=== PATIENT | female | born 1940 | race Caucasian/White ===

== ENCOUNTER 2022-08-27 09:29 | Inpatient (IN) ==
--- NOTE | 2022-08-13 12:16 | PAT Medication Instructions ---
Medication Instructions Date of Service August 13, 2022 Home Medications ascorbic acid (vitamin C) 500 mg tablet (Vitamin C) 500 mg PO QAM cholecalciferol (vitamin D3) 25 mcg (1,000 unit) chewable tablet (Vitamin D3) 25 mcg PO QAM garlic 500 mg PO QAM geriatric multivitamin-min 1 tab PO QAM pantoprazole 40 mg tablet,delayed release 40 mg PO QAM pyridoxine (vitamin B6) 50 mg tablet (Vitamin B-6) 50 mg PO QAM tramadol 50 mg tablet 50 mg PO Q6H PRN Pain turmeric 900 mg-turmeric root extract 100 mg-black pepper 5 mg capsule 1 cap PO QAM zinc 50 mg tablet 50 mg PO QAM STOP taking 2 weeks before surgery (or as soon as possible if surgery is within 2 weeks) turmeric 900 mg-turmeric root extract 100 mg-black pepper 5 mg capsule 1 cap PO QAM garlic 500 mg PO QAM DO NOT take the morning of surgery ascorbic acid (vitamin C) 500 mg tablet (Vitamin C) 500 mg PO QAM cholecalciferol (vitamin D3) 25 mcg (1,000 unit) chewable tablet (Vitamin D3) 25 mcg PO QAM geriatric multivitamin-min 1 tab PO QAM pyridoxine (vitamin B6) 50 mg tablet (Vitamin B-6) 50 mg PO QAM zinc 50 mg tablet 50 mg PO QAM Take morning of surgery With a small sip of water, OTHERWISE NOTHING TO EAT OR DRINK AFTER MIDNIGHT: pantoprazole 40 mg tablet,delayed release 40 mg PO QAM tramadol 50 mg tablet 50 mg PO Q6H PRN Pain (if needed) Take evening before surgery tramadol 50 mg tablet 50 mg PO Q6H PRN Pain (if needed) Other Notes If you have any questions please call us at [phone] or [phone] or [phone] or [phone]
--- NOTE | 2022-08-16 14:14 | Anesthesiology Consultation ---
Date of Service August 16, 2022 Assessment & Plan (1) Encounter for pre-operative examination: - COVID screening: Per assessment on 08/16: No known COVID-19 positive contacts or current COVID-19 related symptoms. Travel screen negative. At surgeon discretion if preop Covid testing being done. - Outpatient joint assessment: Pt currently scheduled for inpatient pathway. If surgeon requests review for outpatient joint pathway, patient is acceptable candidate for outpatient joint program for total shoulder arthroplasty from anesthesia standpoint pending surgeon's office assessment of pt motivation/ensuring strong home support/completion of same day joint program preop requirements. - Cardiology office visit (07/31/22): " Based on the revised cardiac risk index for preoperative risk (Stuart criteria), this patient is class I with a perioperative risk of major cardiac event under general anesthesia of 0.4%. I think the patient is at low risk for the proposed procedure. The patient's cardiac care has been optimized in anticipation for surgery." - Patient acceptable risk for surgery pending surgeon-ordered PCP preop e valuation (Dr. Souleymane Kelly; Geoffrey scheduled 08/21). Chart Review Chart Review: Patient seen in Pre Admission Testing Teaching & Discussion Pre-Anesthesia Teaching/Discussion Notes: Instructed NPO after midnight before surgery,except medications with 15 cc of water. Medication instructions pr ovided according to the PAT guidelines. History Surgery Operation Date: 08/27/22 13:45 Proposed Procedures p Right Total Shoulder Arthroplasty - Alfredito Toney MD Height/Weight Height: 5 ft 2 in Weight: 78.2 kg Allergies Allergy/AdvReac Type Severity Reaction Status Date / Time methylprednisolone Allergy Unknown unknown Verified 08/10/22 12:22 isosorbide AdvReac Unknown headache Verified 08/10/22 12:22 Medications Home Medications Medication Instructions Recorded Confirmed Last Taken ascorbic acid (vitamin C) 500 mg 500 mg PO QAM 08/10/22 08/10/22 Unknown tablet (Vitamin C) cholecalciferol (vitamin D3) 25 25 mcg PO QAM 08/10/22 08/10/22 Unknown mcg (1,000 unit) chewable tablet (Vitamin D3) garlic 500 mg PO QAM 08/10/22 08/10/22 Unknown geriatric multivitamin-min 1 tab PO QAM 08/10/22 08/10/22 Unknown pantoprazole 40 mg tablet,delayed 40 mg PO QAM 08/10/22 08/10/22 Unknown release pyridoxine (vitamin B6) 50 mg 50 mg PO QAM 08/10/22 08/10/22 Unknown tablet (Vitamin B-6) tramadol 50 mg tablet 50 mg PO Q6H PRN Pain 08/10/22 08/10/22 Unknown turmeric 900 mg-turmeric root 1 cap PO QAM 08/10/22 08/10/22 Unknown extract 100 mg-black pepper 5 mg capsule zinc 50 mg tablet 50 mg PO QAM 08/10/22 08/10/22 Unknown Past Medical History Medical History Chronic sinusitis Dyslipidemia GERD (gastroesophageal reflux disease) Hx MRSA infection "Several yrs ago"/no further details per pt PSVT (paroxysmal supraventricular tachycardia) Exercise / Class Metabolic Activity III < 4 Walking/Shop/Light housework (cane PRN) Past Family History Family History Sister Diabetes Past Surgical History Surgical History History of cataract surgery R/L History of cholecystectomy History of colonoscopy History of hysterectomy History of tooth extraction History of total hip arthroplasty Right Right LCAUDIA revision (05/06/18): SAB at L3/4 (x1 attempt) at [facility]. No issues noted per post-op anesthesia progress note. History of total knee replacement R/L Social History Smoking Status: Never smoker Do You Dip or Chew Tobacco: No Hx Alcohol Use: No Hx Substance Use: No substance use type: does not use Review of Systems Patient denies chest pain, shortness of breath, fever, chills, cough, wheezing, palpitations. Physical Exam Vital Signs VITALS BP 144/81 P 79 TEMP 98.2 SP02 98%RA RESP 16 PHYSICAL Full cervical extension range of motion. Full TMJ range of motion. TMD 3 finger breaths Mallampati Score 3 Dentition: several missing sides/molars Lungs: clear throughout to auscultation Cardiac: regular rate and rhythm, no murmurs noted Spine: normal Carotid arteries: negative bruit Extremities: no edema Lab Results Anesthesia Preop Results Results Anesthesia Widget: WBC 6.03 K/ul (4.8-10.8) 08/16/22 Hgb 13.3 g/dl (12.0-16.0) 08/16/22 Hct 39.8 % (34.1-44.9) 08/16/22 Plt 226 K/uL (130-400) 08/16/22 Na 142 mmol/L (136-145) 08/16/22 K 4.1 mmol/L (3.5-5.1) 08/16/22 Cl 108 mmol/L (98-107) H 08/16/22 CO2 30 mmol/L (21-32) 08/16/22 BUN 18 mg/dl (6-23) 08/16/22 Creat 0.63 mg/dl (0.6-1.2) 08/16/22 Glucose Level 103 mg/dl (70-99(Fasting)) H 08/16/22 PT 10.8 Seconds (9.0-12.0) 08/16/22 PTT 28.6 Seconds (21.0-31.0) 08/16/22 INR 1.0 (0.9-1.1) 08/16/22 HA1c 5.8 % (4.5-5.6) H 08/16/22 Urine Color Yellow 08/16/22 Urine Appearance Clear (Clear) 08/16/22 Urine pH 5.0 (4.5-7.5) 08/16/22 Urine Specific [place] 1.019 (1.000-1.030) 08/16/22 Urine Protein Negative (Negative) 08/16/22 Urine Glucose (UA) Negative (Negative) 08/16/22 Urine Ketones Negative (Negative) 08/16/22 Urine Blood Negative (Negative) 08/16/22 Urine Nitrite Negative (Negative) 08/16/22 Urine Bilirubin Negative (Negative) 08/16/22 Urine Urobilinogen Negative (Negative) 08/16/22 Urine Leukocyte Esterase Negative (Negative) 08/16/22 Blood Type O Negative 08/16/22 Antibody Screen NEGATIVE 08/16/22 Testing Electrocardiogram Date: 07/31/22 SR at 74bpm. Normal ECG. Chest X-Ray Date: 08/16/22 FINDINGS: Lung volumes are normal. No consolidation to suggest pneumonia. Linear left basilar opacity reflects atelectasis. There is no pneumothorax or pleural effusion. Cardiac size is normal. Mediastinal contours are normal. There is no evidence for pulmonary edema. Incidental note is made of cholecystectomy clips. Right subcoracoid calcifications are unchanged. IMPRESSION: No acute cardiopulmonary findings. COVID-19 Risk Screen Screening Information COVID-19 Screen Date: 08/16/22 Exposure 21 Days Family/Household +COVID Last 21 Days: No Exposure 10 Days Any COVID Exposure Last 10 Days: No Symptoms Last 10 Days Experienced COVID Sx Last 10 Days: No + COVID 0-90 Days COVID + in Last 0-90 Days: No
--- NOTE | 2022-08-25 09:07 | History & Physical Report ---
Date of Service August 25, 2022 Assessment & Plan (1) Primary osteoarthritis, right shoulder: Plan: Treatment options discussed with the patient. She has failed conservative measures. She would like to proceed with surgical intervention. Given the appearance of her MRI feel patient would be better served with a reverse total shoulder arthroplasty versus a anatomic total shoulder. Risks, benefits and alternatives to surgery including but not limited to infection, DVT, pain, stiffness, need for revision surgery, damage to blood vessels, damage to nerves, PE, , were discussed with the patient and they wish to proceed. Plan on right reverse total shoulder arthroplasty scheduled for August 27 at [facility] with Dr. Toney. All questions answered. Patient will follow-up postop. History of Present Illness Chief Complaint: Right shoulder pain Primary Care Provider: Souleymane Robles Elder 82-year-old female with past medical history significant for high cholesterol, GERD, PSVT who presents with longstanding right shoulder pain. She has pain interfering with her daily activities. She has failed conservative measures including anti-inflammatories and injections. She would like to proceed with surgical intervention. Patient denies headaches, sweats, fevers, chills, double vision, blurred vision, cough, sore throat, dysphagia, chest pain, sob, wheezing, n/v/d/c, numbness, tingling, fatigue, urinary symptoms, mood disorders. ROS positive for right shoulder pain and stiffness. Allergies Allergy/AdvReac Type Severity Reaction Status Date / Time methylprednisolone Allergy Unknown unknown Verified 08/10/22 12:22 isosorbide AdvReac Unknown headache Verified 08/10/22 12:22 Home Medications Medication Instructions Recorded Confirmed Type ascorbic acid (vitamin C) 500 mg 500 mg PO QAM 08/10/22 08/10/22 History tablet (Vitamin C) cholecalciferol (vitamin D3) 25 25 mcg PO QAM 08/10/22 08/10/22 History mcg (1,000 unit) chewable tablet (Vitamin D3) garlic 500 mg PO QAM 08/10/22 08/10/22 History geriatric multivitamin-min 1 tab PO QAM 08/10/22 08/10/22 History pantoprazole 40 mg tablet,delayed 40 mg PO QAM 08/10/22 08/10/22 History release pyridoxine (vitamin B6) 50 mg 50 mg PO QAM 08/10/22 08/10/22 History tablet (Vitamin B-6) tramadol 50 mg tablet 50 mg PO Q6H PRN Pain 08/10/22 08/10/22 History turmeric 900 mg-turmeric root 1 cap PO QAM 08/10/22 08/10/22 History extract 100 mg-black pepper 5 mg capsule zinc 50 mg tablet 50 mg PO QAM 08/10/22 08/10/22 History Past Med/Surg History Medical History Chronic sinusitis Dyslipidemia GERD (gastroesophageal reflux disease) Hx MRSA infection "Several yrs ago"/no further details per pt PSVT (paroxysmal supraventricular tachycardia) Surgical History History of cataract surgery R/L History of cholecystectomy History of colonoscopy History of hysterectomy History of tooth extraction History of total hip arthroplasty Right Right CLAUDIA revision (05/06/18): SAB at L3/4 (x1 attempt) at [facility]. No issues noted per post-op anesthesia progress note. History of total knee replacement R/L Family History Sister Diabetes Social History Smoking Status: Never smoker Second Hand Exposure: No; Hx Alcohol Use: No Hx Substance Use: No Preferred Language: Beninese Communication Ability: Effective Microwave Technician Required: No Beliefs That Will Affect Care: None Current Living Situation: Family Feels Safe at Home: Yes Assistive Devices: Cane, Glasses and Walker Review of Systems All systems reviewed & are unremarkable except as noted in HPI & below Physical Exam Constitutional: well developed and well nourished; no acute distress Eyes: PERRL, conjunctivae normal, anicteric sclerae ENMT: external ear and nose normal, oropharynx normal Neck: trachea midline, no thyromegaly Respiratory: normal respiratory effort, lungs clear to auscultation Cardiovascular: RRR, no murmur, no edema Musculoskeletal: Right shoulder: There is crepitation with range of motion. Tenderness anterior aspect of her shoulder and anterolateral acromion. She has painful range of motion with forward flexion of 90 degrees actively, abduction of 90 degrees actively. She has pain with strength testing. Skin: no rashes, warm and dry Neurologic: patellar DTR's 2+ bilat, sensation intact Psychiatric: A+Ox3, euthymic affect Results & Data ([facility]) Diagnostic Findings Right shoulder radiographs demonstrate end-stage osteoarthritis glenohumeral joint. Patient has [id number] glenohumeral joint. She has multiple osteochondral loose bodies anterior aspect of her shoulder. MRI demonstrates that she is mildly anteriorly subluxed. There is a large fluid collection anterior aspect of her shoulder. Appears her subscapularis is chronically torn. Supraspinatus appears intact with some rotator cuff tendinopathy.
[~2022-08-27 09:29] MED LIST: ACETAMINOPHEN 500 MG TAB PO SCH; BUPIVACAINE 0.5 % 5 MG/1 ML PF 10ML VIAL ONE; CeleBREX 200 MG CAP PO SCH; FAMOTIDINE 20 MG TAB PO SCH; GABAPENTIN 300 MG CAP PO SCH; LR 15ML/HR IV SCH; METOCLOPRAMIDE HCL 10 MG TABLET PO SCH; TRANEXAMIC ACID 1,000 MG **IV Intra-op IV SCH; TRANEXAMIC ACID 1,000 MG **IV Pre-op IV SCH; ceFAZolin 1000MG 1,000 MG/7.5 ML SYR IV SCH; dexAMETHasone 4 MG TAB PO SCH
[2022-08-27] MEDS ORDERED: ROCURONIUM BROMIDE 10 MG/ML 5 ML VIAL IV ONE (09:30)
[2022-08-27] MEDS ORDERED: ONDANSETRON INJ 2 MG/ML 2 ML VIAL ONE (09:30)
[2022-08-27] MEDS ORDERED: LIDOCAINE 2% 2 ML VIAL/AMP(20MG/ML) INFIL ONE (09:30)
[2022-08-27] MEDS ORDERED: PROPOFOL IV EMULSION 10 MG/ML 20 ML VIAL IV ONE (09:30)
[2022-08-27] MEDS ORDERED: MIDAZOLAM HCL 1 MG/ML 2ML VIAL ONE (09:30)
[2022-08-27] MEDS ORDERED: fentaNYL citrate 100 MCG/2 ML VIAL ONE (09:31)
--- NOTE | 2022-08-27 09:53 | History & Physical Bridge Note ---
Date of Service August 27, 2022 History & Physical Bridge Note I have examined the patient, reviewed the History & Physical and in the interval since the performance of the History & Physical I have noted the following changes of clinical significance: no changes noted
[2022-08-27] MEDS ORDERED: PROMETHAZINE HCL 12.5 MG in SODIUM CHLORIDE 0.9% 50 ML IV PRN (10:54)
[2022-08-27] MEDS ORDERED: HYDROmorphone INJ 2 MG/ML SYR/VIAL IV PRN (10:54)
[2022-08-27] MEDS ORDERED: ATROPINE SULFATE 0.1 MG/ML 10ML SYR IV PRN (10:54)
[2022-08-27] MEDS ORDERED: ePHEDrine sulfate 50 MG/ML AMP IV PRN (10:54)
[2022-08-27] MEDS ORDERED: ONDANSETRON INJ 2 MG/ML 2 ML VIAL IV PRN ×2 (10:54→15:49)
[2022-08-27] MEDS ORDERED: fentaNYL citrate 100 MCG/2 ML VIAL IV PRN (10:54)
[2022-08-27] MEDS ORDERED: ceFAZolin 330 MG/ML 1 GM VIAL ONE (11:51)
[2022-08-27] MEDS ORDERED: SODIUM CHLORIDE 0.9% INJ 10 ML VIAL ONE ×2 (11:51→13:51)
[2022-08-27] MEDS ORDERED: PHENYLEPHRINE HCL 10 MG/ML VIAL ONE ×2 (13:51)
[2022-08-27] MEDS ORDERED: ePHEDrine sulfate 50 MG/ML AMP ONE (13:51)
[2022-08-27] MEDS ORDERED: SUGAMMADEX SODIUM 200 MG/2 ML VIAL IV ONE (14:04)
--- NOTE | 2022-08-27 14:43 | Operative Report ---
Post Operative Report Pre & Post Diagnosis Operation Date: 08/27/22 11:35 Pre-Op Diagnosis: Osteoarthritis, Right Shoulder, subcoracoid loose bodies, biceps tendinopathy with dislocation and associated bursal cyst anterior shoulder, subscapularis partial tear with rotator cuff tendinopathy subscapularis Post-Op Diagnosis: Same, partial tear supraspinatus tendon bursal side, subcoracoid loose bodies 2 cm, 1.5 cm and 2.5 cm. I identified the patient and participated in the time-out.: Yes Procedure Operation Date: 08/27/22 11:35 Actual Procedures p Right Reverse Total Shoulder Arthroplasty, excision subcoracoid loose bodies 2 cm, 1.5 cm and 2.5 cm, biceps tenodesis including excision of biceps tenosynovial cyst.- Alfredito Toney MD Surgeon Alfredito Toney MD Auto Damage Appraiser Emmanuel VANESSA Estimated Blood Loss 250 Findings Consistent with Post-Op Diagnosis Specimens Loose bodies and humeral head Drains 2 Hemovac Anesthesia Type General Regional Complications none Disposition Accompanied Patient To Recovery: No Disposition: Recovery Room Indications 82-year-old female with severe end-stage osteoarthritis of her right shoulder failed conservative management. X-rays demonstrate [id number] glenohumeral joint with subcoracoid large loose bodies. Her MRI demonstrates partial tear subscapularis tendon with dislocation of a widened proximal biceps tendon with biceps tendinopathy and anterior subluxation of the humerus and marked biceps tenosynovitis with a large cyst anterior medial to the biceps that extends from the biceps sheath. Description of Procedure The patient was taken to the operating room and anesthetized under regional block and general anesthetic. The patient was positioned on the operating table in a 30 beach chair position with a towel roll under the medial border of the right scapula. The arm was draped free to be able to manipulate the shoulder as needed. The right upper extremity was prepped and draped in usual sterile fashion. Exam demonstrated [id number] crepitation. Range of motion 130 degrees forward flexion 70 degrees abduction and and 30 degrees external rotation. She had an obese upper arm.. An anterior deltopectoral approach was performed. A longitudinal incision was made in the deltopectoral interval. The skin was incised sharply. Subcutaneous flaps were elevated off the fascia. The cephalic vein was dissected out and retracted lateral with the deltoid. The clavipectoral fascia was divided at the lateral margin of the conjoined tendon and extended up to the CA ligament. The following findings were noted; humerus was more anterior translated than typical. It was pushing up against the CA ligament and conjoined tendon. There was a large fluid collection overlying the biceps. The upper centimeter the pectoralis was released for better inferior exposure. The biceps tenosynovium extended into large cyst that was deep to the conjoined tendon anterior medially. This was carefully dissected out withdrawn back laterally and was able to pull back the entire cyst overlying the biceps tendon after which the cyst and the range of the biceps tendon sheath which was significantly thickened and chronically inflamed was resected. The biceps tendon was tenodesed to the pectoralis tendon with #2 FiberWire. The proximal biceps was resected. The proximal biceps was widened and dislocated under some partial tearing of the upper subscapularis tendon tissue. The outer subscapularis tendon tissue was still attached to bone and this was a deep partial tear. The subscapular muscle fibers were split longitudinally at the level of the circumflex vessels. The circumflex vessels were identified and tied off with silk ties and divided laterally. A Kitner elevator was used to free up the inferior fibers of the subscapularis off of the capsule. The axillary nerve was identified with a tug test and protected with a blunt Evan retractor between the nerve and the capsule. The subscapularis tendon was then taken down off of the lesser tuberosity subperiosteally, a Vicryl traction suture was placed and a subperiosteal dissection was performed along the neck of the humerus as the arm was gradually externally rotated exposing the humeral head. The humeral head findings demonstrated flattening of the humeral head with bone loss complete eburnation no articular cartilage a Hill-Sachs lesion posteriorly which was fairly deep possibly due to chronic anterior instability.. retractors were readjusted and the inferior osteophytes were all resected using an artist chisel. A Corona elevator was used to assist in releasing the capsule of the neck of the humerus. The capsule was divided with Montilla scissors down to the glenoid released off the anterior glenoid and the rotator interval was released to meet the capsular release and a 360 release of the subscapularis was accomplished. A Fukuda retractor was placed into the joint retracting the humeral head posterior. First attention was taken to removing the large loose bodies. The conjoined tendon was retracted anteriorly and there was a synovial type cystic tissue overlying the large loose bodies which was released with a long handled Bovie tip and using a right angle and long forceps I was able to remove 3 large loose bodies measuring 2 cm, 2.5 cm and 1.5 cm. The labrum and the remainder of the biceps widened tendon were resected as well as some chronic inflamed synovial tissue from the glenohumeral joint. Glenoid findings demonstrated there was a large anterior calcified labrum or bone spur that was resected. There was completely eburnated bone with no articular cartilage remaining with type a central wear with the superior and inferior diameter of the glenoid being longer than the medial lateral. There were some thin bone spurs of the posterior glenoid area.. an anterior-inferior and posterior inferior capsular release were performed with electrocautery and a Corona elevator on bone with the axillary nerve protected inferiorly by the retractor. Attention was then taken to the humeral preparation. The cutting guide was placed into the humeral head. It was positioned at 20 of retroversion. Oscillating saw was used to resect the humeral head giving the cut above the level of the posterior rotator cuff insertion site. The humerus was then prepared for the stem. [facility] First the supraspinatus was released leaving the infraspinatus and teres minor intact for appropriate exposure. The sizing broaches were used followed by trial broaches up to a size 3B long which had the appropriate fit and fill. The appropriate sized cut protector was placed. The humerus was then retracted posterior to the glenoid. The glenoid was sized for a 36 glenoid sphere and a 25 mm baseplate. The guide for the baseplate was positioned in a 10 inferior tilt and the central drill hole was made. The reamer for the 25 baseplate was used. The central drill was widened for the peg. The Tornier aequalis hydroxyapatite-coated 25 mm baseplate was impacted into position. The base plate was transfixed with superior and inferior locking screws and anterior and posterior compression screws with stable fixation. The fan reamer was used for the 36 millimeter glenoid sphere. After irrigation the 36 mm standard glenoid sphere was impacted onto the baseplate and the security screw was tightened. Attention was taken back to the humerus. First we noted some bleeding from the cephalic vein where there was a tear in the thin vein and this vein had to be tied off with silk ties to control bleeding. The cut protector was removed and the +0 low offset humeral tray trial was assembled to the trial stem rotated appropriately to get bony coverage and then screwed in position. A trial reduction was performed. A +9 reversed trial insert demonstrated good stability and no shuck. The trials were removed. 3 drill holes are made into the harder bone in the bicipital groove area and 3 #5 FiberWire sutures were placed transosseously. The canal was irrigated with pulsatile lavage saline solution. The final component was assembled. The final component was +9 mm versus insert assembled to plus or low offset humeral tray onto a ascend flex 3B long stem. This was then impacted into the humerus with a tight press-fit. It was reduced to the glenoid sphere. Stability was verified. Subscapularis was repaired with the #5 FiberWire sutures using Saurabh-Emre suture technique. Lateral row soft tissue repair was performed with #2 FiberWire [id number] sutures. The supraspinatus anterior portion was reapproximated to the subscapularis tendon lateral rotator interval tissue with similar #2 FiberWire [id number] sutures. The pectoralis was repaired with #2 FiberWire [id number] sutures reinforcing the biceps tendon tenodesis. The arm was taken through a range of motion which demonstrated 130 degrees forward flexion 90 degrees abduction and 45 degrees external rotation without any tension on repair. The implant was stable through the range of motion tested. The wound was copiously irrigated. 2 Hemovac drains were placed. The deltopectoral interval was closed with [id number] #1 Vicryl sutures. The subcutaneous tissues were closed with 2-0 Vicryl sutures. The skin was closed with vipin. Sterile dressings were applied and a shoulder immobilizer. Adan VANESSA, my physician medical receptionist medical assistant, acted as multimedia production assistant throughout the procedure .He performed functions including patient positioning, arm positioning, prepping and draping, soft tissue retraction, instrument management, suture management and performed the subcutaneous and skin closure and will participate in the postoperative care of the patient. I attest to the content of the Intraoperative Record and any orders documented therein. Any exceptions are noted below.
--- NOTE | 2022-08-27 15:20 | Anesthesiology Progress Note ---
Date of Service August 27, 2022 Anesthesia Post Procedure Vital Signs Vital Signs: Temp Pulse Resp BP Pulse Ox O2 Del Method O2 Flow Rate 08/27/22 15:10 69 13 105/75 97 Oxymask 2 08/27/22 15:00 69 20 139/67 99 Oxymask 5 08/27/22 14:50 75 20 144/76 H 99 Oxymask 5 08/27/22 14:40 36 C L 73 19 146/67 H 100 Oxymask 5 08/27/22 10:12 36.5 C 77 22 193/99 H 98 Room Air Pain Intensity Right Shoulder: Pain Intensity: 0 Transfer of Care Handoff Completed per policy Notes Mental Status: alert / awake / arousable Patient Amnestic to Procedure: Yes Nausea / Vomiting: adequately controlled Pain: adequately controlled Airway Patency, RR, SpO2: stable & adequate BP & HR: stable & adequate Hydration State: stable & adequate Anesthetic Complications: no major complications apparent
--- NOTE | 2022-08-27 15:28 | XRay Report ---
RIGHT SHOULDER 2 VIEWS CLINICAL HISTORY: Postoperative examination. FINDINGS: 2 portable views of the right shoulder are obtained. The skeletal structures are osteopenic . A right shoulder arthroplasty is in near anatomic alignment. No acute fracture is seen. Skin clips, a surgical drain, subcutaneous gas, and soft tissue swelling overlying the right shoulder are expect ed postoperative findings. The right lung parenchyma is clear as visualized noting basilar atelectasi s. IMPRESSION: Expected postoperative findings status post right shoulder arthroplasty. No fracture is s een. Electronically signed by: Bjorn Paez M.D. 08/27/2022 3:27 PM
[2022-08-27] MEDS ORDERED: bisacodyL 10 MG SUPP PR PRN (15:49)
[2022-08-27] MEDS ORDERED: NALOXONE HCL 0.4 MG/1 ML VIAL/CARP IV PRN (15:49)
[2022-08-27] MEDS ORDERED: METOCLOPRAMIDE HCL INJ 5 MG/ML 2 ML VIAL IV PRN (15:49)
[2022-08-27] MEDS ORDERED: MAGNESIUM HYDROXIDE SUSP 30 ML UDC PO PRN (15:49)
[2022-08-27] MEDS ORDERED: oxyCODONE HCL IR 5 MG TAB (IMMEDIATE RELEASE) PO PRN (15:49)
[2022-08-27] MEDS ORDERED: HYDROmorphone INJ 0.5 MG/0.5 ML SYR IV PRN (15:49)
[2022-08-27] MEDS: SODIUM CHLORIDE 0.9% 1000ML 1,000 ML IV SCH (16:03)
[2022-08-27] MEDS: DOCUSATE SODIUM 100 MG CAP PO SCH (20:49)
[2022-08-27] MEDS: ACETAMINOPHEN 500 MG TAB PO SCH (20:49)
[2022-08-27] MEDS: ceFAZolin 1000MG 1,000 MG/7.5 ML SYR IV SCH (20:50)
[2022-08-27] MEDS ORDERED: SENNA 8.6 MG TAB PO SCH (21:00)
[2022-08-28] MEDS: SODIUM CHLORIDE 0.9% 1000ML 1,000 ML IV SCH (02:56)
[2022-08-28] MEDS: ACETAMINOPHEN 500 MG TAB PO SCH (05:11)
[2022-08-28] MEDS: ceFAZolin 1000MG 1,000 MG/7.5 ML SYR IV SCH (05:11)
--- NOTE | 2022-08-28 07:41 | Orthopedic Progress Note ---
Date of Service August 28, 2022 Assessment & Plan (1) Primary osteoarthritis, right shoulder: Plan: Postop day #1 right reverse total shoulder arthroplasty -PT/OT: No shoulder range of motion. May do elbow/wrist/hand motion, shrugs, pendulums -DVT prophylaxis: SCDs -Pain management as written -A.m. labs are pending -Discharge planning plan on discharge home likely later today Admission and Anticipated Discharge Date Admission Date: August 27, 2022 Subjective Patient is postop day 1 right reverse total shoulder. She is doing well this morning. Pain is well controlled. No other complaints currently. Denies chest pain, shortness of breath, dizziness, nausea/vomiting/diarrhea. Review of Systems Review of Systems: All systems reviewed & are unremarkable except as noted in Subjective Physical Exam Physical Exam: Right shoulder: Dressing is clean, dry, intact. Sling in place. Hemovac on suction. Fingers are mobile. Does have some numbness into her fingers and stiffness likely residual from block. Constitutional: WD/WN, vitals as above Results & Data ([facility]) Vital Signs (Past 12 Hours) Vital Signs Temp Pulse Resp BP Pulse Ox O2 Del Method 08/28/22 06:05 36.4 C L 73 16 128/74 94 Room Air 08/28/22 02:57 36.4 C L 83 16 143/79 H 93 Room Air 08/27/22 21:47 36.4 C L 83 18 131/74 93 Room Air
[2022-08-28] MEDS: DOCUSATE SODIUM 100 MG CAP PO SCH (08:07)
[2022-08-28 08:34] LABS: Basophils # (auto) 0.01 K/uL (0-0.2); Basophils % (auto) 0.1 %; Hematocrit (blood only) 34.8 % (34.1-44.9); Hemoglobin 11.8 g/dl (12.0-16.0); Immature Granulocytes # (auto) 0.06 K/uL (0.00-0.02); Immature Granulocytes % (auto) 0.4 %; Lymphocytes # (auto) 0.63 K/uL (1.2-3.4); Lymphocytes % (auto) 4.6 %; Mean Corpuscular Hemoglobin 31.5 pg (25.0-34.0); Mean Corpuscular Hgb Conc 33.9 g/dL (32.0-36.0); Mean Corpuscular Volume 92.8 fL (80.0-100.0); Mean Platelet Volume 9.7 fL (9.4-12.3); Monocytes # (auto) 1.09 K/uL (0.24-0.82); Neutrophils # (auto) 11.85 K/uL (1.4-6.5); Neutrophils % (auto) 86.9 %; Platelet Count 210 K/uL (130-400); RDW Coefficient of Variation 13.6 % (11.5-14.5); RDW Standard Deviation 46.6 fL (36.4-46.3); Red Blood Count 3.75 M/uL (3.93-5.22); White Blood Count 13.64 K/ul (4.8-10.8)
[2022-08-28] MEDS ORDERED: PANTOprazole 40 MG TAB PO SCH (09:00)
[2022-08-28] MEDS ORDERED: CHOLECALCIFEROL 1,000 UNITS 25 MCG TAB PO SCH (09:00)
[2022-08-28] MEDS ORDERED: PYRIDOXINE HCL 50 MG TAB PO SCH (09:00)
[2022-08-28] MEDS ORDERED: ASCORBIC ACID 500 MG TAB PO SCH (09:00)
[2022-08-28] MEDS ORDERED: MULTIVITAMIN TAB PO SCH (09:00)
[2022-08-28 09:02] LABS: Calcium 8.9 mg/dl (8.5-10.1); Creatinine Clr Calc Pharmacy 70.4 ml/min; Est GFR (African American) 99.8 ml/min; Est GFR (Non-African American) 86.1 ml/min; Potassium 4.3 mmol/L (3.5-5.1)
--- NOTE | 2022-08-28 12:17 | Hospitalist Consultation ---
Date of Consultation August 28, 2022 Assessment & Plan (1) Primary osteoarthritis, right shoulder: The patient is postoperative day #1 after right shoulder arthroplasty. Orthopedic management (2) GERD (gastroesophageal reflux disease): Stable. Continue PPI therapy (3) Acute blood loss anemia: Mild. No intervention necessary at this time Plan Medically stable for discharge to home per orthopedic service History of Present Illness Reason for Consultation: Medical management Requesting Physician: Dr. Wagoner Attending Physician: Alfredito Toney MD History of Present Illness 82-year-old female who underwent right shoulder arthroplasty on August 27. She was seen today prior to discharge and is medically stable. Allergies Allergy/AdvReac Type Severity Reaction Status Date / Time methylprednisolone Allergy Unknown unknown Verified 08/27/22 10:43 isosorbide AdvReac Unknown headache Verified 08/27/22 10:43 Home Medications Medication Instructions Recorded Confirmed Type ascorbic acid (vitamin C) 500 mg 500 mg PO QAM 08/10/22 08/27/22 History tablet (Vitamin C) cholecalciferol (vitamin D3) 25 25 mcg PO QAM 08/10/22 08/27/22 History mcg (1,000 unit) chewable tablet (Vitamin D3) garlic 500 mg PO QAM 08/10/22 08/27/22 History pantoprazole 40 mg tablet,delayed 40 mg PO QAM 08/10/22 08/27/22 History release (Protonix) pyridoxine (vitamin B6) 50 mg 50 mg PO QAM 08/10/22 08/27/22 History tablet (Vitamin B-6) turmeric 900 mg-turmeric root 1 cap PO QAM 08/10/22 08/27/22 History extract 100 mg-black pepper 5 mg capsule zinc 50 mg tablet 50 mg PO QAM 08/10/22 08/27/22 History acetaminophen 500 mg tablet 1,000 mg PO Q8 #60 tabs 08/28/22 Rx (Tylenol Extra Strength) oxycodone 5 mg tablet 5 - 10 mg PO .Q4h-6h PRN pain #30 08/28/22 Rx tabs Patient History Medical History Chronic sinusitis Dyslipidemia GERD (gastroesophageal reflux disease) Hx MRSA infection "Several yrs ago"/no further details per pt PSVT (paroxysmal supraventricular tachycardia) Surgical History History of cataract surgery R/L History of cholecystectomy History of colonoscopy History of hysterectomy History of tooth extraction History of total hip arthroplasty Right Right CLAUDIA revision (05/06/18): SAB at L3/4 (x1 attempt) at [facility]. No issues noted per post-op anesthesia progress note. History of total knee replacement R/L Family History Sister Diabetes Social History Smoking Status: Never smoker Second Hand Exposure: No; Do You Dip or Chew Tobacco: No; Tobacco Cessation Education Requested by Patient: No Hx Alcohol Use: No Hx Substance Use: No Preferred Language: Syriac Communication Ability: Effective Credit Relationship Manager Required: No Beliefs That Will Affect Care: None marital status: / Current Living Situation: Family How many Children do You have: 1 Other Information That Helps Us Care for You: No Feels Safe at Home: Yes Safety Concerns: Feels Safe At This Time Assistive Devices: Cane and Stair Lift Assistive Devices Comment: chair lift Review of Systems Review of Systems: Constitutional-no fever or chills ENT-no blurred vision, no double vision, no epistaxis, no sore throat Respiratory-no cough, no wheezing, no shortness of breath Cardiac-no palpitations, no chest pain, no syncope GI-no nausea, vomiting, diarrhea, melena, hematochezia -no urinary retention, no urinary incontinence, no dysuria, no hematuria Musculoskeletal-mild postoperative right shoulder discomfort. Otherwise unremarkable Skin-no bruising, no rashes, no pruritus Neuro-no isolated weakness, no paresthesia, no weakness Psych-no depression, no anxiety Physical Exam Physical Exam: General-alert and oriented x3, no fevers, no chills HEENT-head atraumatic and normocephalic, pupils equal and reactive to light, extraocular muscles intact Neck-no lymphadenopathy or thyromegaly, trachea midline Chest-clear to auscultation percussion. No rales wheezing or rhonchi Cardiac-regular rate and rhythm, normal S1 and S2, no murmurs Abdomen-normal bowel sounds, nontender, no hepatosplenomegaly Extremities-right shoulder immobilized postoperatively Neuro-cranial nerves II through XII intact, motor and sensory function within normal limits, strength symmetrical , no focal deficits Psych-normal affect, normal mood Results & Data Results & Data ([facility]) Vital Signs (Past 12 Hours) Vital Signs Temp Pulse Resp BP Pulse Ox O2 Del Method 08/28/22 10:31 36.4 C L 73 16 128/74 94 08/28/22 06:05 36.4 C L 73 16 128/74 94 Room Air 08/28/22 02:57 36.4 C L 83 16 143/79 H 93 Room Air Laboratory Results 08/28/22 07:57 08/28/22 07:57 PG Care Time/CCT Total # of Minutes Spent Total Time Spent with Patient: Total time spent is greater than 50% in coordination of care (as documented) at patient's floor/unit and/or counseling patient: Coding Level of Care Code 84069 Inpt Consult Level 3 Diagnoses Primary osteoarthritis, right shoulder M19.011 GERD (gastroesophageal reflux disease) K21.9 Acute blood loss anemia D62
--- NOTE | 2022-08-29 07:17 | Discharge Summary ---
Date of Service August 29, 2022 Admission HPI Per Admitting Provider 82-year-old female with past medical history significant for high cholesterol, GERD, PSVT who presents with longstanding right shoulder pain. She has pain interfering with her daily activities. She has failed conservative measures including anti-inflammatories and injections. She would like to proceed with surgical intervention. Patient denies headaches, sweats, fevers, chills, double vision, blurred vision, cough, sore throat, dysphagia, chest pain, sob, wheezing, n/v/d/c, numbness, tingling, fatigue, urinary symptoms, mood disorders. ROS positive for right shoulder pain and stiffness. Admission Exam Per Admitting Provider Constitutional: well developed and well nourished; no acute distress Eyes: PERRL, conjunctivae normal, anicteric sclerae ENMT: external ear and nose normal, oropharynx normal Neck: trachea midline, no thyromegaly Respiratory: normal respiratory effort, lungs clear to auscultation Cardiovascular: RRR, no murmur, no edema Musculoskeletal: Right shoulder: There is crepitation with range of motion. Tenderness anterior aspect of her shoulder and anterolateral acromion. She has painful range of motion with forward flexion of 90 degrees actively, abduction of 90 degrees actively. She has pain with strength testing. Skin: no rashes, warm and dry A Neurologic: patellar DTR's 2+ bilat, sensation intact Psychiatric: A+Ox3, euthymic affect Principal Diagnosis Right shoulder osteoarthritis Discharge Exam Right shoulder: Dressing is clean, dry, intact. Sling in place. Hemovac on suction. Fingers are mobile. Does have some numbness into her fingers and stiffness likely residual from block. Constitutional WD/WN, vitals as above Discharge Data Allergies Allergy/AdvReac Type Severity Reaction Status Date / Time methylprednisolone Allergy Unknown unknown Verified 08/27/22 10:43 isosorbide AdvReac Unknown headache Verified 08/27/22 10:43 Consultations 08/23/22 12:07 Consult Hospitalist Routine Procedures Performed Operation Date: 08/27/22 11:35 Actual Procedures p Right Reverse Total Shoulder Arthroplasty(Right) - Alfredito Toney MD Ordered Studies 08/27/22 05:00 US - OR guided needle placemen Routine Hospital Course (1) Primary osteoarthritis, right shoulder: Postop day #1 right reverse total shoulder arthroplasty -PT/OT: No shoulder range of motion. May do elbow/wrist/hand motion, shrugs, pendulums -DVT prophylaxis: SCDs -Pain management as written -A.m. labs are pending -Discharge planning plan on discharge home likely later today Lab Results 08/28/22 08/28/22 Range/Units 07:57 07:57 WBC 13.64 H (4.8-10.8) K/ul RBC 3.75 L (3.93-5.22) M/uL Hgb 11.8 L (12.0-16.0) g/dl Hct 34.8 (34.1-44.9) % MCV 92.8 (80.0-100.0) fL MCH 31.5 (25.0-34.0) pg MCHC 33.9 (32.0-36.0) g/dL RDW Std Deviation 46.6 H (36.4-46.3) fL RDW Coeff of Vicky 13.6 (11.5-14.5) % Plt Count 210 (130-400) K/uL MPV 9.7 (9.4-12.3) fL Immature Gran % (Auto) 0.4 % Neut % (Auto) 86.9 % Lymph % (Auto) 4.6 % [place] % (Auto) 8.0 % Eos % (Auto) 0.0 % Baso % (Auto) 0.1 % Neut # (Auto) 11.85 H (1.4-6.5) K/uL Lymph # (Auto) 0.63 L (1.2-3.4) K/uL [place] # (Auto) 1.09 H (0.24-0.82) K/uL Eos # (Auto) 0.00 (0-0.50) K/uL Baso # (Auto) 0.01 (0-0.2) K/uL Immature Gran # (Auto) 0.06 H (0.00-0.02) K/uL Sodium 138 (136-145) mmol/L Potassium 4.3 (3.5-5.1) mmol/L Chloride 105 (98-107) mmol/L Carbon Dioxide 28 (21-32) mmol/L Anion Gap 5 (3-11) BUN 21 (6-23) mg/dl Creatinine 0.60 (0.6-1.2) mg/dl Est Cr Clr Drug Dosing 70.4 ml/min Est GFR ( Amer) 99.8 ml/min Est GFR (Non-Af Amer) 86.1 ml/min BUN/Creatinine Ratio 35.0 H (10-20) Glucose 118 H (70-99(Fasting)) mg/dl Calcium 8.9 (8.5-10.1) mg/dl Total Time Total Time Spent Total Time Spent (In Minutes): 20 Discharge Plan Discharge Items Patient Disposition: Home - Home Health Services Reason For Visit: Osteoarthritis, Right Shoulder Discharge Diagnosis: Right shoulder osteoarthritis Activity: Per Instructions section Non-emergency contact: Surgeon Call non-emergency contact if: you have any medication questions, your pain is not controlled, your pain is concerning for you, you have a fever, your temperature is above 101, your wound has increased redness and your wound has increased drainage Follow-up/Referrals: Souleymane Kelly M.D. [Primary Care Provider] - Diet: Regular Addtl Attending Provider Instructions: ACTIVITY RECOMMENDATIONS: SELF CARE INSTRUCTIONS AFTER TOTAL SHOULDER ARTHROPLASTY REVERSE A. You may do daily exercises as taught in physical therapy while in hospital. No lifting with the operative arm. B. You are to wear your sling/immobilizer at all times EXCEPT when performing your daily exercises and for hygiene purposes. C. You may perform dry, daily dressing changes. Please keep your incision covered. You may shower 48 hours after surgery. Do not apply soap or any ointment/lotions directly over incision. Do not soak incision in bath tub/swimming pool. D. You may use ice as needed to operative shoulder. SPECIAL CARE INSTRUCTIONS: VERY IMPORTANT TO READ AND REVIEW A. There are a few signs you need to watch for after you are home. Call [facility] at [phone] if you experience any of the followin. Increased severe shoulder pain. Some pain is expected especially when you exercise. 2. Increased swelling in you shoulder or arm; pain or swelling in either upper extremity. 3. Any fluid drainage from the incision. 4. Shortness of breath or chest pain. B. Please call [facility] at [phone] if you have any questions or concerns about your operation or recovery. C. Call your physician if: 1. Temperature is greater than 101 degrees (F). 2. Pain is not relieved by prescribed pain medications. 3. Increase drainage or redness from incision. 4. Unanswered questions or concerns. FOLLOW UP VISIT: Please call [facility] at [phone] to schedule a follow up appointment with Dr. Toney or his PA in 12-14 days from your surgery date. Stand-Alone Forms: My [employer], Smoking Cessation Medications and DC Order Prescriptions: New acetaminophen [Tylenol Extra Strength] 500 mg Tablet 1,000 mg PO Q8 Qty: 60 0RF oxycodone 5 mg Tablet 5 - 10 mg PO .Q4h-6h MDD 6 PRN (Reason: pain) Qty: 30 0RF Rx Instructions: Ongoing therapy, Dr. Toney supervising Continued ascorbic acid (vitamin C) [Vitamin C] 500 mg Tablet 500 mg PO QAM pantoprazole [Protonix] 40 mg Tablet,Delayed Release (Dr/Ec) 40 mg PO QAM garlic Capsule 500 mg PO QAM pyridoxine (vitamin B6) [Vitamin B-6] 50 mg Tablet 50 mg PO QAM zinc 50 mg Tablet 50 mg PO QAM cholecalciferol (vitamin D3) [Vitamin D3] 25 mcg (1,000 unit) Tablet,Chewable 25 mcg PO QAM turmeric-turmeric ext-pepper 900-100-5 mg Capsule 1 cap PO QAM Discontinued tramadol 50 mg Tablet 50 mg PO Q6H PRN (Reason: Pain) Discharge Orders: Discharge Order (Routine); Ordered 08/28/22 Ordered By: Emmanuel Hernandez Admission Data Admit Date/Time: 08/27/22 14:42 Attending Provider: Alfredito Toney Admit Provider: Alfredito Toney Primary Care Provider: Souleymane Kelly Other Providers: Conner Meyers ; Nicola Pepe ; [facility] Other Interventions: Discharge Summary Assessment (RN) Last Done: 08/28/22 10:31
== END 2022-08-28 11:36 | disposition home health service (06) | DRG 483 ==
LOC: ASU 09:29 → 3W 14:42

== ENCOUNTER 2023-02-21 12:26 | Observation (INO) ==
--- NOTE | 2023-02-06 13:57 | PAT Medication Instructions ---
Medication Instructions Date of Service February 06, 2023 Home Medications Medication Instructions Recorded acetaminophen 500 mg tablet 1,000 mg PO Q8 #60 tabs 08/28/22 (Tylenol Extra Strength) oxycodone 5 mg tablet 5 - 10 mg PO .Q4h-6h PRN pain #30 08/28/22 tabs ascorbic acid (vitamin C) 500 mg tablet (Vitamin C) 500 mg PO QAM cholecalciferol (vitamin D3) 25 mcg (1,000 unit) chewable tablet (Vitamin D3) 25 mcg PO QAM garlic 500 mg PO QAM pantoprazole 40 mg tablet,delayed release (Protonix) 40 mg PO QAM pyridoxine (vitamin B6) 50 mg tablet (Vitamin B-6) 50 mg PO QAM turmeric 900 mg-turmeric root extract 100 mg-black pepper 5 mg capsule 1 cap PO QAM zinc 50 mg tablet 50 mg PO QAM acetaminophen 500 mg tablet (Tylenol Extra Strength) 1,000 mg PO Q8 oxycodone 5 mg tablet 5 - 10 mg PO .Q4h-6h PRN pain amitriptyline 10 mg tablet 10 mg PO HS PRN Sleep tramadol 50 mg tablet 50 mg PO TID PRN Pain ASK your prescriber and surgeon amitriptyline 10 mg tablet 10 mg PO HS PRN Sleep STOP taking 2 weeks before surgery (or as soon as possible if surgery is within 2 weeks) garlic 500 mg PO QAM turmeric 900 mg-turmeric root extract 100 mg-black pepper 5 mg capsule 1 cap PO QAM DO NOT take the morning of surgery ascorbic acid (vitamin C) 500 mg tablet (Vitamin C) 500 mg PO QAM cholecalciferol (vitamin D3) 25 mcg (1,000 unit) chewable tablet (Vitamin D3) 25 mcg PO QAM pyridoxine (vitamin B6) 50 mg tablet (Vitamin B-6) 50 mg PO QAM zinc 50 mg tablet 50 mg PO QAM Take morning of surgery With a small sip of water, OTHERWISE NOTHING TO EAT OR DRINK AFTER MIDNIGHT: pantoprazole 40 mg tablet,delayed release (Protonix) 40 mg PO QAM acetaminophen 500 mg tablet (Tylenol Extra Strength) 1,000 mg PO Q8 oxycodone 5 mg tablet 5 - 10 mg PO .Q4h-6h PRN pain (if needed) tramadol 50 mg tablet 50 mg PO TID PRN Pain (if needed) Take evening before surgery acetaminophen 500 mg tablet (Tylenol Extra Strength) 1,000 mg PO Q8 oxycodone 5 mg tablet 5 - 10 mg PO .Q4h-6h PRN pain (if needed) tramadol 50 mg tablet 50 mg PO TID PRN Pain (if needed) Other Notes If you have any questions please call us at [phone] or [phone] or [phone] or [phone]
--- NOTE | 2023-02-08 12:15 | Anesthesiology Consultation ---
Date of Service February 08, 2023 Assessment & Plan (1) Encounter for pre-operative examination: - COVID screening: Per assessment on 02/08: No known COVID-19 positive contacts or current COVID-19 related symptoms. Travel screen negative. At surgeon discretion if preop Covid testing being done. - Outpatient joint assessment: Pt currently scheduled for inpatient pathway. If surgeon requests review for outpatient joint pathway, patient is not recommended candidate for outpatient joint program from anesthesia standpoint (patient does not want to be considered for outpatient joint pathway/concerned with post-op care and bleeding due to heavy post-op bleeding in the past that was difficult to control). - S/P Right reverse TSA (08/27/22): Grade 2 view, MAC#3, ETT 7.0 + PNB at [facility]. No issues noted per post-op anesthesia progress note. - Cardiology visit (01/15/23): "Based on the revised cardiac risk index for preoperative risk (Stuart criteria), this patient is a class I with a perioperative risk of major cardiac event under general anesthesia of 0.4%. I think the patient is at a low risk for the proposed procedure. The patient's cardiac care has been optimized in anticipation of surgery." Chart Review Chart Review: Acceptable Risk for Surgery and Patient seen in Pre Admission Testing Teaching & Discussion Pre-Anesthesia Teaching/Discussion Notes: Instructed NPO after midnight before surgery,except medications with 15 cc of water. Medication instructions provided according to the PAT guidelines. History Surgery Operation Date: 02/21/23 09:20 Proposed Procedures p Left Total Shoulder Arthroplasty Reverse - Alfredito Toney MD Height/Weight Height: 5 ft 1 in Weight: 78.471 kg Allergies Allergy/AdvReac Type Severity Reaction Status Date / Time methylprednisolone Allergy Unknown unknown Verified 02/06/23 11:14 isosorbide AdvReac Unknown headache Verified 02/06/23 11:14 Medications Home Medications Medication Instructions Recorded Confirmed Last Taken ascorbic acid (vitamin C) 500 mg 500 mg PO QAM 08/10/22 02/06/23 08/25/22 tablet (Vitamin C) cholecalciferol (vitamin D3) 25 25 mcg PO QAM 08/10/22 02/06/23 08/20/22 mcg (1,000 unit) chewable tablet (Vitamin D3) garlic 500 mg PO QAM 09/02/06/23 08/20/22 pantoprazole 40 mg tablet,delayed 40 mg PO QAM 08/10/22 02/06/23 08/27/22 06:00 release (Protonix) pyridoxine (vitamin B6) 50 mg 50 mg PO QAM 08/10/22 02/06/23 08/26/22 tablet (Vitamin B-6) turmeric 900 mg-turmeric root 1 cap PO QAM 08/10/22 02/06/23 08/20/22 extract 100 mg-black pepper 5 mg capsule zinc 50 mg tablet 50 mg PO QAM 08/10/22 02/06/23 08/26/22 08:00 acetaminophen 500 mg tablet 1,000 mg PO Q8 #60 tabs 08/28/22 02/06/23 Unknown (Tylenol Extra Strength) oxycodone 5 mg tablet 5 - 10 mg PO .Q4h-6h PRN pain #30 08/28/22 02/06/23 Unknown tabs amitriptyline 10 mg tablet 10 mg PO HS PRN Sleep 02/06/23 02/06/23 Unknown tramadol 50 mg tablet 50 mg PO TID PRN Pain 02/06/23 02/06/23 Unknown Past Medical History Medical History Chronic sinusitis Dyslipidemia GERD (gastroesophageal reflux disease) Hx MRSA infection "Several yrs ago"/no further details per pt Poor historian PSVT (paroxysmal supraventricular tachycardia) Exercise / Class Metabolic Activity III < 4 Walking/Shop/Light housework Past Family History Family History Sister Diabetes Past Surgical History Surgical History History of cataract surgery R/L History of cholecystectomy History of colonoscopy History of hysterectomy History of tooth extraction History of total hip arthroplasty Right Right CLAUDIA revision (05/06/18): SAB at L3/4 (x1 attempt) at [facility]. No issues noted per post-op anesthesia progress note. History of total knee replacement R/L Hx of cardiac catheterization Patient thinks possible "many years ago", no stents > not noted per available cardiology records Hx of shoulder replacement Right reverse TSA (08/27/22): Grade 2 view, MAC#3, ETT 7.0 + PNB at [facility]. No issues noted per post-op anesthesia progress note. Past Anesthesia History No Hx of Anesthesia Complications and No Family Hx of Anesthesia Complications History of PONV No Hx of PONV and Hx of Motion Sickness (Remote) Social History Smoking Status: Never smoker Do You Dip or Chew Tobacco: No Hx Alcohol Use: No Hx Substance Use: No substance use type: does not use Review of Systems Patient denies chest pain, shortness of breath, fever, chills, cough, wheezing, palpitations. Physical Exam Vital Signs VITALS BP 169/90 P 77 TEMP 98.3 SP02 97%RA RESP 18 PHYSICAL Decreased cervical extension range of motion. Full TMJ range of motion. TMD 2.5 finger breaths Mallampati Score 1 Dentition: several missing (sides/molars), upper front right chipped Lungs: clear throughout to auscultation Cardiac: regular rate and rhythm, no murmurs noted Spine: normal Carotid arteries: negative bruit Extremities: non-pitting LE edema Lab Results Anesthesia Preop Results Results Anesthesia Widget: WBC 6.31 K/ul (4.8-10.8) 02/08/23 Hgb 13.1 g/dl (12.0-16.0) 02/08/23 Hct 39.6 % (37.0-47.0) 02/08/23 Plt 236 K/uL (130-400) 02/08/23 Na 141 mmol/L (136-145) 02/08/23 K 4.0 mmol/L (3.5-5.1) 02/08/23 Cl 106 mmol/L (98-107) 02/08/23 CO2 31 mmol/L (21-32) 02/08/23 BUN 18 mg/dl (6-23) 02/08/23 Creat 0.65 mg/dl (0.6-1.2) 02/08/23 Glucose Level 95 mg/dl (70-99(Fasting)) 02/08/23 PT 10.8 Seconds (9.0-12.0) 02/08/23 PTT 28.5 Seconds (21.0-31.0) 02/08/23 INR 1.0 (0.9-1.1) 02/08/23 Urine Color Yellow 02/08/23 Urine Appearance Turbid (Clear) A 02/08/23 Urine pH 8.0 (4.5-7.5) H 02/08/23 Urine Specific [place] 1.019 (1.000-1.030) 02/08/23 Urine Protein Negative (Negative) 02/08/23 Urine Glucose (UA) Negative (Negative) 02/08/23 Urine Ketones Negative (Negative) 02/08/23 Urine Blood Negative (Negative) 02/08/23 Urine Nitrite Negative (Negative) 02/08/23 Urine Bilirubin Negative (Negative) 02/08/23 Urine Urobilinogen Negative (Negative) 02/08/23 Urine Leukocyte Esterase Negative (Negative) 02/08/23 Urine WBC (Auto) 1-5 /hpf (0-5) 02/08/23 Urine RBC (Auto) 5-10 /hpf (0-4) H 02/08/23 Urine Hyaline Casts (Auto) 0 /lpf (0-5) 02/08/23 Urine Epithelial Cells (Auto) >30 /lpf (0-5) H 02/08/23 Urine Bacteria (Auto) Negative (Negative) 02/08/23 Blood Type O Negative 02/08/23 Antibody Screen NEGATIVE 02/08/23 Testing Electrocardiogram Date: 07/31/22 SR at 74bpm. Normal ECG. Chest X-Ray Date: 08/16/22 FINDINGS: Lung volumes are normal. No consolidation to suggest pneumonia. Linear left basilar opacity reflects atelectasis. There is no pneumothorax or pleural effusion. Cardiac size is normal. Mediastinal contours are normal. There is no evidence for pulmonary edema. Incidental note is made of cholecystectomy clips. Right subcoracoid calcifications are unchanged. IMPRESSION: No acute cardiopulmonary findings. Echocardiogram Date: 04/26/18 EF 65%. Grade I DD. Trace to mild MR. Mild TR. Mild PI. COVID-19 Risk Screen Screening Information COVID-19 Screen Date: 02/08/23 Exposure 21 Days Family/Household +COVID Last 21 Days: No Exposure 10 Days Any COVID Exposure Last 10 Days: No Symptoms Last 10 Days Experienced COVID Sx Last 10 Days: No + COVID 0-90 Days COVID + in Last 0-90 Days: No
--- NOTE | 2023-02-20 10:50 | History & Physical Report ---
Date of Service February 20, 2023 Assessment & Plan (1) Primary osteoarthritis, left shoulder: Plan: Treatment options discussed with the patient. She has end-stage osteoarthritis left shoulder. She has previous reverse total shoulder on the right side and has done well. She would like to proceed with surgical intervention on the left. Risks, benefits and alternatives to surgery including but not limited to infection, DVT, pain, stiffness, need for revision surgery, damage to blood vessels, damage to nerves, PE, , were discussed with the patient and they wish to proceed. Plan for left reverse total shoulder arthroplasty scheduled for Sheldon Rodriguesy with Dr. Toney on February 21. All questions answered. Patient will follow-up postop. History of Present Illness Chief Complaint: Left shoulder pain Primary Care Provider: NO PCP 82-year-old female with past medical history significant for high cholesterol, GERD, PSVT, previous reverse total shoulder on the right shoulder who presents with ongoing left shoulder pain. Patient has failed conservative measures. Her pain is interfering with her daily activities. She would like to proceed with surgical invention. Patient denies headaches, sweats, fevers, chills, double vision, blurred vision, cough, sore throat, dysphagia, chest pain, sob, wheezin g, n/v/d/c, numbness, tingling, fatigue, urinary symptoms, mood disorders. ROS positive for left shoulder pain and stiffness. Allergies Allergy/AdvReac Type Severity Reaction Status Date / Time methylprednisolone Allergy Unknown unknown Verified 02/06/23 11:14 isosorbide AdvReac Unknown headache Verified 02/06/23 11:14 Home Medications Medication Instructions Recorded Confirmed Type ascorbic acid (vitamin C) 500 mg 500 mg PO QAM 08/10/22 02/06/23 History tablet (Vitamin C) cholecalciferol (vitamin D3) 25 25 mcg PO QAM 08/10/22 02/06/23 History mcg (1,000 unit) chewable tablet (Vitamin D3) garlic 500 mg PO QAM 08/10/22 02/06/23 History pantoprazole 40 mg tablet,delayed 40 mg PO QAM 08/10/22 02/06/23 History release (Protonix) pyridoxine (vitamin B6) 50 mg 50 mg PO QAM 08/10/22 02/06/23 History tablet (Vitamin B-6) turmeric 900 mg-turmeric root 1 cap PO QAM 08/10/22 02/06/23 History extract 100 mg-black pepper 5 mg capsule zinc 50 mg tablet 50 mg PO QAM 08/10/22 02/06/23 History acetaminophen 500 mg tablet 1,000 mg PO Q8 #60 tabs 08/28/22 02/06/23 Rx (Tylenol Extra Strength) oxycodone 5 mg tablet 5 - 10 mg PO .Q4h-6h PRN pain #30 08/28/22 02/06/23 Rx tabs amitriptyline 10 mg tablet 10 mg PO HS PRN Sleep 02/06/23 02/06/23 History tramadol 50 mg tablet 50 mg PO TID PRN Pain 02/06/23 02/06/23 History Past Med/Surg History Medical History Chronic sinusitis Dyslipidemia GERD (gastroesophageal reflux disease) Hx MRSA infection "Several yrs ago"/no further details per pt Poor historian PSVT (paroxysmal supraventricular tachycardia) Surgical History History of cataract surgery R/L History of cholecystectomy History of colonoscopy History of hysterectomy History of tooth extraction History of total hip arthroplasty Right Right CLAUDIA revision (05/06/18): SAB at L3/4 (x1 attempt) at [facility]. No issues noted per post-op anesthesia progress note. History of total knee replacement R/L Hx of cardiac catheterization Patient thinks possible "many years ago", no stents > not noted per available cardiology records Hx of shoulder replacement Right reverse TSA (08/27/22): Grade 2 view, MAC#3, ETT 7.0 + PNB at [facility]. No issues noted per post-op anesthesia progress note. Family History Sister Diabetes Social History Smoking Status: Never smoker Second Hand Exposure: No; Do You Dip or Chew Tobacco: No; Tobacco Cessation Education Requested by Patient: No Hx Alcohol Use: No Hx Substance Use: No Preferred Language: Croatian Communication Ability: Effective Rubber Block Layer Required: No Beliefs That Will Affect Care: None marital status: / Current Living Situation: Family Current Living Situation Comment: LIVES W/ SON, IAM How many Children do You have: 1 Other Information That Helps Us Care for You: No Feels Safe at Home: Yes Safety Concerns: Feels Safe At This Time Assistive Devices: Cane, Glasses and Stair Lift Review of Systems All systems reviewed & are unremarkable except as noted in HPI & below Physical Exam Constitutional: well developed and well nourished; no acute distress Eyes: PERRL, conjunctivae normal, anicteric sclerae ENMT: external ear and nose normal, oropharynx normal Neck: trachea midline, no thyromegaly Respiratory: normal respiratory effort, lungs clear to auscultation Cardiovascular: RRR, no murmur, no edema Musculoskeletal: Left shoulder: Painful range of motion with crepitation. Positive impingement signs. Pain with strength testing. Abduction 4/5, external rotation 4+/5, internal rotation 5/5. Forward flexion to 90 degrees, abduction 85 degrees actively. Skin: no rashes, warm and dry Neurologic: patellar DTR's 2+ bilat, sensation intact Psychiatric: A+Ox3, euthymic affect Results & Data Diagnostic Findings Left shoulder radiographs demonstrate end-stage osteoarthritis left shoulder, [id number] glenohumeral joint. Large inferior humeral spur. Subchondral cysts at the greater tuberosity.
[~2023-02-21 12:26] MED LIST changes: -ceFAZolin 1000MG 1,000 MG/7.5 ML SYR IV SCH; +ceFAZolin 2000MG 2,000 MG/15 ML SYR IV SCH
[2023-02-21] MEDS ORDERED: fentaNYL citrate PF 100 MCG/2 ML VIAL ONE (13:04)
[2023-02-21] MEDS ORDERED: PROPOFOL IV EMULSION 10 MG/ML 20 ML VIAL IV ONE ×2 (13:05→15:29)
[2023-02-21] MEDS ORDERED: LIDOCAINE 2% MPF LOCAL 5 ML VIAL ONE (13:05)
[2023-02-21] MEDS ORDERED: ONDANSETRON INJ 2 MG/ML 2 ML VIAL ONE (13:05)
[2023-02-21] MEDS ORDERED: DEXAMETHASONE SOD INJ 4 MG/ML VIAL ONE (13:05)
[2023-02-21] MEDS ORDERED: ROCURONIUM BROMIDE 10 MG/ML 5 ML VIAL IV ONE (13:07)
[2023-02-21] MEDS ORDERED: SODIUM CHLORIDE 0.9% PF INJ 10 ML VIAL ONE (13:17)
[2023-02-21] MEDS ORDERED: ePHEDrine sulfate 50 MG/ML AMP ONE (13:17)
[2023-02-21] MEDS ORDERED: ATROPINE SULFATE 0.1 MG/ML 10ML SYR IV PRN (13:29)
[2023-02-21] MEDS ORDERED: ONDANSETRON INJ 2 MG/ML 2 ML VIAL IV PRN ×2 (13:29→18:31)
[2023-02-21] MEDS ORDERED: ePHEDrine sulfate 50 MG/ML AMP IV PRN (13:29)
--- NOTE | 2023-02-21 14:02 | History & Physical Bridge Note ---
Date of Service February 21, 2023 History & Physical Bridge Note I have examined the patient, reviewed the History & Physical and in the interval since the performance of the History & Physical I have noted the following changes of clinical significance: no changes noted
[2023-02-21] MEDS ORDERED: GLYCOPYRROLATE 0.2 MG/ML VIAL ONE (14:52)
[2023-02-21] MEDS ORDERED: ESMOLOL HCL INJ 10 MG/ML 10ML VIAL IV ONE (15:34)
[2023-02-21] MEDS ORDERED: LABETALOL HCL IV 5 MG/ML 20ML IV ONE (15:34)
[2023-02-21] MEDS ORDERED: SUGAMMADEX SODIUM 200 MG/2 ML VIAL IV ONE (16:18)
[2023-02-21] MEDS ORDERED: hydrALAZINE HCL 20 MG/ML VIAL ONE (16:45)
--- NOTE | 2023-02-21 17:03 | Operative Report ---
Post Operative Report Pre & Post Diagnosis Operation Date: 02/21/23 14:30 Pre-Op Diagnosis: Left shoulder end-stage glenohumeral osteoarthritis, rotator cuff tendinopathy, biceps tenosynovitis. Post-Op Diagnosis: Left shoulder end-stage glenohumeral osteoarthritis, rotator cuff tendinopathy, partial tear supraspinatus, biceps tendinopathy with tenosynovitis I identified the patient and participated in the time-out.: Yes Procedure Operation Date: 02/21/23 14:30 Actual Procedures p Left Total Shoulder Arthroplasty Reverse(Left), Tenosynovectomy and biceps tenodesis- Alfredito Toney MD Surgeon Alfredito Toney MD Elderly Companion Emmanuel VANESSA Estimated Blood Loss 100 Findings Consistent with Post-Op Diagnosis Specimens Humeral head Drains 2 Hemovac Anesthesia Type General Regional Complications none Disposition Disposition: Recovery Room Indications 82-year-old female with chronic left shoulder pain. Patient has severe end- stage osteoarthritis with typical large inferior humeral osteophytes consistent with osteoarthritis. She has type a wear completely [id number] with some mild bone loss pattern. Patient has successful right reverse shoulder replacement on a more severely arthritic shoulder. Description of Procedure The patient was taken to the operating room and anesthetized under regional block and general anesthetic. The patient was positioned on the operating table in a 30 beach chair position with a towel roll under the medial border of the left scapula. The arm was draped free to be able to manipulate the shoulder as needed. The left upper extremity was prepped and draped in usual sterile fashion. Exam demonstrated forward flexion 140 degrees abduction 90 degrees external rotation 45 degrees. [id number] crepitation.. An anterior deltopectoral approach was performed. A longitudinal incision was made in the deltopectoral interval. The skin was incised sharply. Subcutaneous flaps were elevated off the fascia. The cephalic vein was dissected out and retracted lateral with the deltoid. The clavipectoral fascia was divided at the lateral margin of the conjoined tendon and extended up to the CA ligament. The following findings were noted: The biceps tendon sheath had large cysts and synovitis from chronic bicipital inflammation and likely synovial tissue coming out of the joint into the biceps sheath. Intra-articular biceps was widened as well. The subscapularis tendon was intact. The supraspinatus had tendinopathy with bursal sided partial tearing no full-thickness tear.. The upper centimeter of the pectoralis was released for inferior exposure. A self-retaining retractor was placed. The the tendon cysts and inflamed tenosynovium material was resected from within the bicipital groove and around the biceps tendon. The biceps tendon was tenodesed to the pectoralis tendon with #2 FiberWire. The proximal biceps was resected. The subscapular muscle fibers were split longitudinally at the level of the circumflex vessels. The circumflex vessels were identified and tied off with silk ties and divided laterally. A Kitner elevator was used to free up the inferior fibers of the subscapularis off of the capsule. The axillary nerve was identified with a tug test and protected with a blunt Evan retractor between the nerve and the capsule. The subscapularis tendon was then taken down off of the lesser tuberosity subperiosteally, a Vicryl traction suture was placed and a subperiosteal dissection was performed along the neck of the humerus as the arm was gradually externally rotated exposing the humeral head. The humeral head findings demonstrated large osteophytes extending from anterior lateral along the inferior humeral articular surface back to the posterior humerus. There was eburnated bone on humeral head with no articular cartilage remaining.. retractors were readjusted and the inferior osteophytes were all resected using an artist chisel. All other smaller osteophytes around the head were resected with a rongeur. A Corona elevator was used to assist in releasing the capsule of the neck of the humerus. The capsule was divided with Montilla scissors down to the glenoid released off the anterior glenoid and the rotator interval was released to meet the capsular release and a 360 release of the subscapularis was accomplished. A Fukuda retractor was placed into the joint retracting the humeral head posterior. Glenoid findings demonstrated complete eburnation with no articular cartilage remaining with a type A central wear pattern. There was calcification of the posterior labrum. There were some osteophytes around the periphery of the glenoid.. The labrum and biceps tendon was resected. an anterior-inferior and posterior inferior capsular release were performed with electrocautery and a Corona elevator on bone with the axillary nerve protected inferiorly by the retractor. Attention was then taken to the humeral prepara tion. The cutting guide was placed into the humeral head. It was positioned at 20 of retroversion. Oscillating saw was used to resect the humeral head giving the cut above the level of the posterior rotator cuff insertion site. The humerus was then prepared for the stem. I used the ascend flex stem from [employer]. The sizing broaches were used followed by trial broaches up to a size 3B long which had the appropriate fit and fill. The appropriate sized cut protector was placed. The humerus was then retracted posterior to the glenoid. The glenoid was sized for a 25 baseplate. The guide for the baseplate was positioned in a 10 inferior tilt and the central drill hole was made. The reamer for the 25 baseplate was used. The central drill was widened for the peg. Additional toggling of the central drill was required due to the substantially sclerotic bone in order to facilitate baseplate placement. The Tornier aequalis hydroxyapatite-coated 25 mm standard post baseplate was imp acted into position. The base plate was transfixed with superior and inferior locking screws and anterior and posterior compression screws with stable fixation. The fan reamer was used for the 36 millimeter glenoid sphere. After irrigation the 36 mm centered glenoid sphere was impacted onto the baseplate and the security screw was tightened. Attention was taken back to the humerus. The cut protector was removed and the +0 high offset humeral tray trial was assembled to the trial stem rotated appropriately to get bony coverage and then screwed in position. A trial reduction was performed. A +6, 36 reversed trial insert demonstrated good stability and no shuck. The trials were removed. 3 drill holes are made into the harder bone in the bicipital groove area and 3 #5 FiberWire sutures were placed transosseously. The canal was irrigated with antibiotic solution with bacitracin. The final component was assembled. The final component was ascend flex 3B long stem assembled to +0 high offset humeral tray with +6, 36 reversed polyethylene insert. This was then impacted into the humerus with a tight press-fit. It was reduced to the glenoid sphere. Stability was verified. There was no shuck on testing. The subscapularis was repaired with the #5 FiberWire sutures using Saurabh-Emre suture technique. Lateral row soft tissue repair was performed with #2 FiberWire [id number] sutures. The pectoralis was repaired with #2 FiberWire sdejkv-to-uzzaj sutures reinforcing the biceps tendon tenodesis. The arm was taken through a range of motion which demonstrated 130 degrees forward flexion 90 degrees AB duction and 60 degrees external rotation without any tension on repair. The implant was stable through the range of motion tested. The wound was copiously irrigated. 2 Hemovac drains were placed. The deltopectoral interval was closed with [id number] #1 Vicryl sutures. The subcutaneous tissues were closed with 2- 0 Vicryl sutures. The skin was closed with vipin. Sterile dressings were applied and a shoulder immobilizer. Emmanuel VANESSA my physician casting assistant acted as bus assistant throughout the procedure .He performed functions including patient positioning, arm positioning, prepping and draping, soft tissue retraction, instrument management, suture management and performed the subcutaneous and skin closure and will participate in the postoperative care of the patient. I attest to the content of the Intraoperative Record and any orders documented therein. Any exceptions are noted below.
[2023-02-21] MEDS: fentaNYL citrate PF 100 MCG/2 ML VIAL IV PRN ×4 (17:33→18:00)
--- NOTE | 2023-02-21 17:39 | XRay Report ---
LEFT SHOULDER 2 VIEWS CLINICAL HISTORY: Postoperative examination. FINDINGS: 2 portable views of the left shoulder are obtained. The skeletal structures are osteopenic. A left shoulder arthroplasty is in near-anatomic alignment. No acute fracture is seen. Productive de generative change is noted in the acromioclavicular joint. Skin clips, a surgical drain, subcutaneous gas, and soft tissue swelling overlying the left shoulder are expected postoperative changes. Visual ized left lung parenchyma is clear noting dependent atelectasis. IMPRESSION: Expected postoperative findings status post left shoulder arthroplasty placement. No acut e fracture is seen. Electronically signed by: Bjorn Paez M.D. 02/21/2023 5:38 PM
--- NOTE | 2023-02-21 18:02 | Anesthesiology Progress Note ---
Date of Service February 21, 2023 Anesthesia Post Procedure Vital Signs Vital Signs: Temp Pulse Pulse Resp BP Pulse Ox O2 Del Method 02/21/23 17:55 72 14 131/60 95 Room Air 02/21/23 17:25 72 11 L 136/64 96 Room Air 02/21/23 17:45 70 12 129/57 L 94 Room Air 02/21/23 17:35 70 12 138/67 93 Room Air 02/21/23 17:15 75 10 L 145/75 H 98 Room Air 02/21/23 17:06 36 C L 77 14 141/67 H 100 Room Air 02/21/23 13:10 36.4 C L 85 20 187/113 H 99 Room Air Pain Intensity Left Shoulder: Pain Intensity: 5 Transfer of Care Handoff Completed per policy Notes Mental Status: alert / awake / arousable Patient Amnestic to Procedure: Yes Nausea / Vomiting: adequately controlled Pain: adequately controlled Airway Patency, RR, SpO2: stable & adequate BP & HR: stable & adequate Hydration State: stable & adequate Anesthetic Complications: no major complications apparent
[2023-02-21] MEDS ORDERED: NALOXONE HCL 0.4 MG/1 ML VIAL/CARP IV PRN (18:31)
[2023-02-21] MEDS ORDERED: traMADol HCL 50 MG TABLET PO PRN (18:31)
[2023-02-21] MEDS ORDERED: bisacodyL 10 MG SUPP PR PRN (18:31)
[2023-02-21] MEDS ORDERED: AMITRIPTYLINE HCL 10 MG TAB PO PRN (18:31)
[2023-02-21] MEDS ORDERED: HYDROmorphone INJ 0.5 MG/0.5 ML SYR IV PRN (18:31)
[2023-02-21] MEDS ORDERED: METOCLOPRAMIDE HCL INJ 5 MG/ML 2 ML VIAL IV PRN (18:31)
[2023-02-21] MEDS ORDERED: MAGNESIUM HYDROXIDE SUSP 30 ML UDC PO PRN (18:31)
[2023-02-21] MEDS ORDERED: SENNA 8.6 MG TAB PO SCH (21:00)
[2023-02-21] MEDS: SODIUM CHLORIDE 0.9% 1000ML 1,000 ML IV SCH (22:05)
[2023-02-21] MEDS: ACETAMINOPHEN 500 MG TAB PO SCH (22:05)
[2023-02-21] MEDS: DOCUSATE SODIUM 100 MG CAP PO SCH (22:06)
[2023-02-22] MEDS: SODIUM CHLORIDE 0.9% 1000ML 1,000 ML IV SCH (04:50)
[2023-02-22] MEDS: ACETAMINOPHEN 500 MG TAB PO SCH (06:18)
[2023-02-22] MEDS ORDERED: MULTIVITAMIN TAB PO SCH (09:00)
[2023-02-22] MEDS ORDERED: ASCORBIC ACID 500 MG TAB PO SCH (09:00)
[2023-02-22] MEDS ORDERED: PANTOprazole 40 MG TAB PO SCH (09:00)
[2023-02-22] MEDS ORDERED: PYRIDOXINE HCL 50 MG TAB PO SCH (09:00)
[2023-02-22] MEDS ORDERED: CHOLECALCIFEROL 1,000 UNITS 25 MCG TAB PO SCH (09:00)
[2023-02-22] MEDS: DOCUSATE SODIUM 100 MG CAP PO SCH (09:13)
--- NOTE | 2023-02-22 09:41 | Hospitalist Consultation ---
Date of Consultation February 22, 2023 Assessment & Plan (1) Primary osteoarthritis, left shoulder: POD 1 s/p Left Reverse TSA with Dr Toney PT/OT evaluated and patient doing well post operatively Patient to have outpatient physical therapy upon discharge Labs reviewed and stable. Hgb mild drop comparable to August. No evidence of any active bleeding, likely dilutional and blood loss from surgery ok for discharge and follow up with PCP (2) GERD (gastroesophageal reflux disease): - Stable and chronic - Continue PPI History of Present Illness Reason for Consultation: Medical Management Requesting Physician: Dr Toney Attending Physician: Alfredito Toney MD Allergies Allergy/AdvReac Type Severity Reaction Status Date / Time methylprednisolone Allergy Unknown unknown Verified 02/21/23 13:06 isosorbide AdvReac Unknown headache Verified 02/21/23 13:06 Home Medications Medication Instructions Recorded Confirmed Type ascorbic acid (vitamin C) 500 mg 500 mg PO QAM 08/10/22 02/21/23 History tablet (Vitamin C) cholecalciferol (vitamin D3) 25 25 mcg PO QAM 08/10/22 02/21/23 History mcg (1,000 unit) chewable tablet (Vitamin D3) garlic 500 mg PO QAM 08/10/22 02/21/23 History pantoprazole 40 mg tablet,delayed 40 mg PO QAM 08/10/22 02/21/23 History release (Protonix) pyridoxine (vitamin B6) 50 mg 50 mg PO QAM 08/10/22 02/21/23 History tablet (Vitamin B-6) turmeric 900 mg-turmeric root 1 cap PO QAM 08/10/22 02/21/23 History extract 100 mg-black pepper 5 mg capsule zinc 50 mg tablet 50 mg PO QAM 08/10/22 02/21/23 History acetaminophen 500 mg tablet 1,000 mg PO Q8 #60 tabs 08/28/22 02/21/23 Rx (Tylenol Extra Strength) amitriptyline 10 mg tablet 10 mg PO HS PRN Sleep 02/06/23 02/21/23 History tramadol 50 mg tablet 50 - 100 mg PO Q6H PRN pain #36 02/22/23 Rx tabs Patient History Medical History (Updated 02/22/23 @ 12:54 by Joellen Vergara PA-C) Chronic sinusitis Dyslipidemia GERD (gastroesophageal reflux disease) Hx MRSA infection "Several yrs ago"/no further details per pt Poor historian PSVT (paroxysmal supraventricular tachycardia) Surgical History History of cataract surgery R/L History of cholecystectomy History of colonoscopy History of hysterectomy History of tooth extraction History of total hip arthroplasty Right Right CLAUDIA revision (05/06/18): SAB at L3/4 (x1 attempt) at [facility]. No issues noted per post-op anesthesia progress note. History of total knee replacement R/L Hx of cardiac catheterization Patient thinks possible "many years ago", no stents > not noted per available cardiology records Hx of shoulder replacement Right reverse TSA (08/27/22): Grade 2 view, MAC#3, ETT 7.0 + PNB at [facility]. No issues noted per post-op anesthesia progress note. Family History Sister Diabetes Social History Smoking Status: Never smoker Second Hand Exposure: No; Do You Dip or Chew Tobacco: No; Tobacco Cessation Education Requested by Patient: No Hx Alcohol Use: No Hx Substance Use: No Preferred Language: Hungarian Communication Ability: Effective Night Time Nanny Required: No Beliefs That Will Affect Care: None marital status: / Current Living Situation: Family Current Living Situation Comment: LIVES W/ SON, IAM How many Children do You have: 1 Other Information That Helps Us Care for You: No Feels Safe at Home: No Is there a partner from a previous relationship who is making you feel unsafe now?: No Any Concerns about Your Family Situation: No Would You Like to Speak to Someone About Your Situation: No Safety Concerns: Feels Safe At This Time Assistive Devices: Cane and Walker Review of Systems Review of Systems: Patient denies any chest pain, SOB, Dyspnea, abdominal pain, cough fever or chills. All other ROS negative unless stated above. Physical Exam Constitutional: WD/WN, vitals as above Neck: trachea midline, no thyromegaly Respiratory: normal respiratory effort, lungs clear to auscultation Cardiovascular: Rate/Rhythm: regular rate and regular rhythm Extremities: normal capillary refill; no calf tenderness and no edema Musculoskeletal: left shoulder in sling with OLEGARIO drain Skin: no rashes, warm and dry Psychiatric: A+Ox3, euthymic affect Results & Data Results & Data Vital Signs (Past 12 Hours) Vital Signs Temp Pulse Resp BP Pulse Ox O2 Del Method 02/22/23 07:34 36.3 C L 72 18 119/66 94 Room Air 02/22/23 05:30 36.4 C L 72 18 102/57 L 93 Room Air 02/22/23 05:15 36.6 C 71 18 121/74 96 Room Air 02/22/23 01:33 36.4 C L 85 18 92/53 L 93 Room Air 02/21/23 22:00 Room Air Laboratory Results Abnormal lab results 02/22/23 02/22/23 Range/Units 10:16 10:16 RBC 3.77 L (4.20-5.40) M/uL Hgb 11.8 L (12.0-16.0) g/dl Hct 36.6 L (37.0-47.0) % RDW Std Deviation 52.2 H (36.4-46.3) fL RDW Coeff of Vicky 14.6 H (11.5-14.5) % Neut # (Auto) 7.03 H (1.40-6.50) K/uL Lymph # (Auto) 0.67 L (1.2-3.4) K/uL Murray # (Auto) 0.80 H (0.11-0.59) K/uL BUN/Creatinine Ratio 21.7 H (10-20) Glucose 107 H (70-99(Fasting)) mg/dl Calcium 8.5 L (8.6-10.3) mg/dl Diagnostic Findings Shoulder X-Ray 02/21/23 17:10 LEFT SHOULDER 2 VIEWS CLINICAL HISTORY: Postoperative examination. FINDINGS: 2 portable views of the left shoulder are obtained. The skeletal structures are osteopenic. A left shoulder arthroplasty is in near-anatomic alignment. No acute fracture is seen. Productive degenerative change is noted in the acromioclavicular joint. Skin clips, a surgical drain, subcutaneous gas, and soft tissue swelling overlying the left shoulder are expected postoperative changes. Visualized left lung parenchyma is clear noting dependent atelectasis. IMPRESSION: Expected postoperative findings status post left shoulder arthroplasty placement. No acute fracture is seen. Electronically signed by: Bjorn Paez M.D. 02/21/2023 5:38 PM PG Care Time/CCT Total # of Minutes Spent Total Time Spent with Patient: Total time spent is greater than 50% in coordination of care (as documented) at patient's floor/unit and/or counseling patient: Coding Level of Care Code 51318 IN/OBS CONSULT LVL 2,35M Diagnoses Primary osteoarthritis, left shoulder M19.012 GERD (gastroesophageal reflux disease) K21.9
--- NOTE | 2023-02-22 10:17 | Orthopedic Progress Note ---
Date of Service February 22, 2023 Assessment & Plan (1) Primary osteoarthritis, left shoulder: Plan: POD 1 s/p Left Reverse TSA PT/OT protocols. CHRIS [place] DVT prophylaxis - SCD's Pain medications as written. DC planning - Plan for outpt PT upon dc. Admission and Anticipated Discharge Date Admission Date: February 21, 2023 Subjective POD 1 Pt sitting in her chair at bedside. Having some mild pain in the operative shoulder. No other complaints at this time. Physical Exam Physical Exam: Dressings C/D/I. Sling in place. Hemovac functioning. Minimal drainage. Moving fingers well with some mild residual numbness from the nerve block. Cap refill less than 2 seconds. Results & Data Vital Signs (Past 12 Hours) Vital Signs Temp Pulse Resp BP Pulse Ox O2 Del Method 02/22/23 07:34 36.3 C L 72 18 119/66 94 Room Air 02/22/23 05:30 36.4 C L 72 18 102/57 L 93 Room Air 02/22/23 05:15 36.6 C 71 18 121/74 96 Room Air 02/22/23 01:33 36.4 C L 85 18 92/53 L 93 Room Air Laboratory Results Laboratory Results WBC 8.60 K/ul (4.8-10.8) 02/22/23 10:16 RBC 3.77 M/uL (4.20-5.40) L 02/22/23 10:16 Hgb 11.8 g/dl (12.0-16.0) L 02/22/23 10:16 Hct 36.6 % (37.0-47.0) L 02/22/23 10:16 MCV 97.1 fL (80.0-100.0) 02/22/23 10:16 MCH 31.3 pg (25.0-34.0) 02/22/23 10:16 MCHC 32.2 g/dL (32.0-36.0) 02/22/23 10:16 RDW Std Deviation 52.2 fL (36.4-46.3) H 02/22/23 10:16 RDW Coeff of Vicky 14.6 % (11.5-14.5) H 02/22/23 10:16 Plt Count 187 K/uL (130-400) 02/22/23 10:16 MPV 9.6 fL (9.4-12.4) 02/22/23 10:16 Immature Gran % (Auto) 0.3 % 02/22/23 10:16 Neut % (Auto) 81.8 % 02/22/23 10:16 Lymph % (Auto) 7.8 % 02/22/23 10:16 [place] % (Auto) 9.3 % 02/22/23 10:16 Eos % (Auto) 0.3 % 02/22/23 10:16 Baso % (Auto) 0.5 % 02/22/23 10:16 Neut # (Auto) 7.03 K/uL (1.40-6.50) H 02/22/23 10:16 Lymph # (Auto) 0.67 K/uL (1.2-3.4) L 02/22/23 10:16 [place] # (Auto) 0.80 K/uL (0.11-0.59) H 02/22/23 10:16 Eos # (Auto) 0.03 K/uL (0-0.50) 02/22/23 10:16 Baso # (Auto) 0.04 K/uL (0-0.2) 02/22/23 10:16 Immature Gran # (Auto) 0.03 K/uL (0.01-0.20) 02/22/23 10:16 Sodium 140 mmol/L (136-145) 02/22/23 10:16 Potassium 3.8 mmol/L (3.5-5.1) 02/22/23 10:16 Chloride 107 mmol/L (98-107) 02/22/23 10:16 Carbon Dioxide 25 mmol/L (21-32) 02/22/23 10:16 Anion Gap 8 (3-11) 02/22/23 10:16 BUN 18 mg/dl (6-23) 02/22/23 10:16 Creatinine 0.83 mg/dl (0.6-1.2) 02/22/23 10:16 Est Cr Clr Drug Dosing 53.0 ml/min 02/22/23 10:16 Est GFR ( Amer) 77.2 ml/min 02/22/23 10:16 Est GFR (Non-Af Amer) 66.6 ml/min 02/22/23 10:16 BUN/Creatinine Ratio 21.7 (10-20) H 02/22/23 10:16 Glucose 107 mg/dl (70-99(Fasting)) H 02/22/23 10:16 Calcium 8.5 mg/dl (8.6-10.3) L 02/22/23 10:16 SARS-CoV-2, RNA, NAAT NEGATIVE (NEGATIVE) 02/21/23 13:00 Impressions Shoulder X-Ray 02/21/23 17:10 LEFT SHOULDER 2 VIEWS CLINICAL HISTORY: Postoperative examination. FINDINGS: 2 portable views of the left shoulder are obtained. The skeletal structures are osteopenic. A left shoulder arthroplasty is in near-anatomic alignment. No acute fracture is seen. Productive degenerative change is noted in the acromioclavicular joint. Skin clips, a surgical drain, subcutaneous gas, and soft tissue swelling overlying the left shoulder are expected postoperative changes. Visualized left lung parenchyma is clear noting dependent atelectasis. IMPRESSION: Expected postoperative findings status post left shoulder arthroplasty placement. No acute fracture is seen. Electronically signed by: Bjorn Paez M.D. 02/21/2023 5:38 PM
[2023-02-22 10:44] LABS: Basophils # (auto) 0.04 K/uL (0-0.2); Basophils % (auto) 0.5 %; Eosinophils # (auto) 0.03 K/uL (0-0.50); Eosinophils % (auto) 0.3 %; Hematocrit (blood only) 36.6 % (37.0-47.0); Hemoglobin 11.8 g/dl (12.0-16.0); Immature Granulocytes # (auto) 0.03 K/uL (0.01-0.20); Immature Granulocytes % (auto) 0.3 %; Lymphocytes # (auto) 0.67 K/uL (1.2-3.4); Lymphocytes % (auto) 7.8 %; Mean Corpuscular Hemoglobin 31.3 pg (25.0-34.0); Mean Corpuscular Hgb Conc 32.2 g/dL (32.0-36.0); Mean Corpuscular Volume 97.1 fL (80.0-100.0); Mean Platelet Volume 9.6 fL (9.4-12.4); Monocytes % (auto) 9.3 %; Neutrophils # (auto) 7.03 K/uL (1.40-6.50); Neutrophils % (auto) 81.8 %; Platelet Count 187 K/uL (130-400); RDW Coefficient of Variation 14.6 % (11.5-14.5); RDW Standard Deviation 52.2 fL (36.4-46.3); Red Blood Count 3.77 M/uL (4.20-5.40)
[2023-02-22 11:17] LABS: BUN Creatinine Ratio 21.7 (10-20); Calcium 8.5 mg/dl (8.6-10.3); Est GFR (African American) 77.2 ml/min; Est GFR (Non-African American) 66.6 ml/min; Potassium 3.8 mmol/L (3.5-5.1)
--- NOTE | 2023-02-24 18:02 | Discharge Summary ---
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 Patient has failed conservative measures. Her pain is interfering with her daily activities. She would like to proceed with surgical invention. Patient denies headaches, sweats, fevers, chills, double vision, blurred vision, cough, sore throat, dysphagia, chest pain, sob, wheezing, n/v/d/c, numbness, tingling, fatigue, urinary symptoms, mood disorders. ROS positive for left shoulder pain and stiffness. Admission Exam Per Admitting Provider Constitutional: well developed and well nourished; no acute distress Eyes: PERRL, conjunctivae normal, anicteric sclerae ENMT: external ear and nose normal, oropharynx normal Neck: trachea midline, no thyromegaly Respiratory: normal respiratory effort, lungs clear to auscultation Cardiovascular: RRR, no murmur, no edema Musculoskeletal: Left shoulder: Painful range of motion with crepitation. Positive impingement signs. Pain with strength testing. Abduction 4/5, external rotation 4+/5, internal rotation 5/5. Forward flexion to 90 degrees, abduction 85 degrees actively. Skin: no rashes, warm and dry Neurologic: patellar DTR's 2+ bilat, sensation intact Psychiatric: A+Ox3, euthymic affect Principal Diagnosis Left shoulder osteoarthritis Discharge Exam Dressings C/D/I. Sling in place. Hemovac functioning. Minimal drainage. Moving fingers well with some mild residual numbness from the nerve block. Cap refill less than 2 seconds. Discharge Data Allergies Allergy/AdvReac Type Severity Reaction Status Date / Time methylprednisolone Allergy Unknown unknown Verified 02/21/23 13:06 isosorbide AdvReac Unknown headache Verified 02/21/23 13:06 Consultations 02/19/23 10:04 Consult Hospitalist Routine Procedures Performed Operation Date: 02/21/23 14:30 Actual Procedures p Left Total Shoulder Arthroplasty Reverse(Left) - Alfredito Toney MD Ordered Studies 02/21/23 05:00 US - OR guided needle placemen Routine Hospital Course (1) Primary osteoarthritis, left shoulder: POD 1 s/p Left Reverse TSA PT/OT protocols. NWB LUE DVT prophylaxis - SCD's Pain medications as written. DC planning - Plan for outpt PT upon dc. Lab Results 02/21/23 02/22/23 02/22/23 Range/Units 13:00 10:16 10:16 WBC 8.60 (4.8-10.8) K/ul RBC 3.77 L (4.20-5.40) M/uL Hgb 11.8 L (12.0-16.0) g/dl Hct 36.6 L (37.0-47.0) % MCV 97.1 (80.0-100.0) fL MCH 31.3 (25.0-34.0) pg MCHC 32.2 (32.0-36.0) g/dL RDW Std Deviation 52.2 H (36.4-46.3) fL RDW Coeff of Vicky 14.6 H (11.5-14.5) % Plt Count 187 (130-400) K/uL MPV 9.6 (9.4-12.4) fL Immature Gran % (Auto) 0.3 % Neut % (Auto) 81.8 % Lymph % (Auto) 7.8 % [place] % (Auto) 9.3 % Eos % (Auto) 0.3 % Baso % (Auto) 0.5 % Neut # (Auto) 7.03 H (1.40-6.50) K/uL Lymph # (Auto) 0.67 L (1.2-3.4) K/uL [place] # (Auto) 0.80 H (0.11-0.59) K/uL Eos # (Auto) 0.03 (0-0.50) K/uL Baso # (Auto) 0.04 (0-0.2) K/uL Immature Gran # (Auto) 0.03 (0.01-0.20) K/uL Sodium 140 (136-145) mmol/L Potassium 3.8 (3.5-5.1) mmol/L Chloride 107 (98-107) mmol/L Carbon Dioxide 25 (21-32) mmol/L Anion Gap 8 (3-11) BUN 18 (6-23) mg/dl Creatinine 0.83 (0.6-1.2) mg/dl Est Cr Clr Drug Dosing 53.0 ml/min Est GFR ( Amer) 77.2 ml/min Est GFR (Non-Af Amer) 66.6 ml/min BUN/Creatinine Ratio 21.7 H (10-20) Glucose 107 H (70-99(Fasting)) mg/dl Calcium 8.5 L (8.6-10.3) mg/dl SARS-CoV-2, RNA, NAAT NEGATIVE (NEGATIVE) Total Time Total Time Spent Total Time Spent (In Minutes): 20 Discharge Plan Discharge Items Patient Disposition: Home - Home Health Services Reason For Visit: POST OP Discharge Diagnosis: left shoulder osteoarthritis Activity: Per Instructions section Weightbearing: Left non-weightbearing Non-emergency contact: Surgeon Call non-emergency contact if: you have any medication questions, your pain is not controlled, your pain is concerning for you, you have a fever, your temperature is above 101, your wound has increased redness and your wound has increased drainage Follow-up/Referrals: Alfredito Toney MD [Surgeon] - (Follow up with Dr Toney or his PA in 2 weeks from the day of surgery for your first post operative visit. ) Arabella Ellis CRNP [Primary Care Provider] - 02/28/23 3:30 pm Diet: Regular Addtl Attending Provider Instructions: ACTIVITY RECOMMENDATIONS: SELF CARE INSTRUCTIONS AFTER TOTAL SHOULDER ARTHROPLASTY REVERSE A. You may do daily exercises as taught in physical therapy while in hospital. No lifting with the operative arm. B. You are to wear your sling/immobilizer at all times EXCEPT when performing your daily exercises and for hygiene purposes. C. You may perform dry, daily dressing changes. Please keep your incision covered. You may shower 48 hours after surgery. Do not apply soap or any ointment/lotions directly over incision. Do not soak incision in bath tub/swimming pool. D. You may use ice as needed to operative shoulder. SPECIAL CARE INSTRUCTIONS: VERY IMPORTANT TO READ AND REVIEW A. There are a few signs you need to watch for after you are home. Call [facility] at [phone] if you experience any of the followin. Increased severe shoulder pain. Some pain is expected especially when you exercise. 2. Increased swelling in you shoulder or arm; pain or swelling in either upper extremity. 3. Any fluid drainage from the incision. 4. Shortness of breath or chest pain. B. Please call [facility] at [phone] if you have any questions or concerns about your operation or recovery. C. Call your physician if: 1. Temperature is greater than 101 degrees (F). 2. Pain is not relieved by prescribed pain medications. 3. Increase drainage or redness from incision. 4. Unanswered questions or concerns. FOLLOW UP VISIT: Please call [facility] at [phone] to schedule a follow up appointment with Dr. Toney or his PA in 12-14 days from your surgery date. Pending Studies at Discharge: No Stand-Alone Forms: [facility] - Opioid Pain Management, Smoking Cessation Medications and DC Order Prescriptions: New tramadol 50 mg tablet 50 - 100 mg PO Q6H MDD 12 tabs PRN (Reason: pain) Qty: 36 0RF Continued ascorbic acid (vitamin C) [Vitamin C] 500 mg Tablet 500 mg PO QAM pantoprazole [Protonix] 40 mg Tablet,Delayed Release (Dr/Ec) 40 mg PO QAM garlic Capsule 500 mg PO QAM pyridoxine (vitamin B6) [Vitamin B-6] 50 mg Tablet 50 mg PO QAM zinc 50 mg Tablet 50 mg PO QAM cholecalciferol (vitamin D3) [Vitamin D3] 25 mcg (1,000 unit) Tablet,Chewable 25 mcg PO QAM turmeric-turmeric ext-pepper 900-100-5 mg Capsule 1 cap PO QAM acetaminophen [Tylenol Extra Strength] 500 mg Tablet 1,000 mg PO Q8 Qty: 60 0RF amitriptyline 10 mg tablet 10 mg PO HS PRN (Reason: Sleep) Discontinued oxycodone 5 mg Tablet 5 - 10 mg PO .Q4h-6h MDD 6 PRN (Reason: pain) Qty: 30 0RF Rx Instructions: Ongoing therapy, Dr. Toney supervising tramadol 50 mg tablet 50 mg PO TID PRN (Reason: Pain) Admission Data Admit Date/Time: 02/21/23 17:10 Attending Provider: Alfredito Toney Admit Provider: Alfredito Toney Primary Care Provider: Arabella Ellis Other Providers: Yon Anderson ; Conner Meyers Other Interventions: Discharge Summary Assessment (RN) Last Done: 02/22/23 12:32
== END 2023-02-22 14:52 | disposition home health service (06) ==
LOC: 3N 12:26 → ASU 12:26